=== PATIENT | male | born 1950 | race Caucasian/White ===

== ENCOUNTER 2022-08-27 16:44 | Emergency (ER) | payer MEDICARE, BC ==
[~2022-08-27] VITALS: Ht 167.6 cm; Wt 88.6 kg
[2022-08-27 17:25] VITALS: BP 132/96
[2022-08-27] MEDS ORDERED: LIDOcaine 1% w/EPI 1:100,000 30ml vial (MDV) SQ ONE (18:20)
[2022-08-27] MEDS ORDERED: LIDOcaine 1% W/epiNEPHrine 1:100,000 20ml vial SQ ONE (18:20)
[2022-08-27] MEDS ORDERED: HYDROcodone/acetaminophen 5mg/325mg tablet PO ONE (19:30)
== END 2022-08-27 20:17 | disposition home or self-care (01) ==
LOC: ER 16:46
DX: S61.111A Laceration without foreign body of right thumb with damage to nail, initial encounter (principal); Z88.5 Allergy status to narcotic agent; X58.XXXA Exposure to other specified factors, initial encounter; Y93.89 Activity, other specified; Y92.89 Other specified places as the place of occurrence of the external cause; Y99.8 Other external cause status
CPT/HCPCS: 64450; 73140; 99284; A6449